=== PATIENT | male | born 1940 | race Caucasian/White ===

== ENCOUNTER 2017-05-18 09:27 | Inpatient (IN) | payer MEDICARE ==
[2017-05-18] VITALS (15 sets, daily range): BP systolic 99–153; BP diastolic 59–93; PULSE 66–112; RESP 14–24; TEMP 97.5–98.6; O2SAT 97–100
[~2017-05-18] VITALS: Ht 165.1 cm; Wt 86.5 kg
[~2017-05-18 09:27] MED LIST: COUM3TAB PO; CYCL-36 PO; FIORIC PO; FOSI20TA PO; FURO20 PO; METO25TA6 PO; OMEP20TA PO; PRED10 PO; SPIR25TA PO
--- NOTE | 2017-05-18 09:59 | PD ---
HPI Chief Complaint: Cardiac Complaint Time Seen by Provider: 09:44 Travel History International Travel<30 days: No Contact w/Intl Traveler<30days: No Traveled to known affect area: No History of Present Illness HPI This patient reports that he's been feeling dizzy and lightheaded for the last 2 days. He's had no syncope. This morning he was feeling palpitations and dizzy and his defibrillator fired one time. He has not had any chest pain. He was at the office of his nurse liaison Dr. Zambrano 3 days ago. Symptoms moderately severe. No alleviating factors. He denies any syncope today. Patient knows he has cardiac rhythm problems but cannot be more specific. PFSH Past Medical History Hx Anticoagulant Therapy: Yes (WARFARIN DAILY) Heart Rhythm Problems: Yes Cancer: No Cardiovascular Problems: Yes (PACER AND DEFIB CATH) High Cholesterol: No Chemotherapy: No Chest Pain: Yes Congestive Heart Failure: Yes Cerebrovascular Accident: No Coronary Artery Disease: Yes (PACER/DEFIB) Diabetes: No Diminished Hearing: No Endocrine: No Gastrointestinal Disorders: Yes GERD: Yes Glaucoma: No Genitourinary: No Hepatitis: No Hiatal Hernia: No Hypertension: Yes Implanted Vascular Access Dvce: Yes Musculoskeletal: Yes Neurologic: No Psychiatric: No Reproductive: No Respiratory: Yes (ASTHMA) Integumentary: No Radiation Therapy: No Seizures: No Thyroid Disease: No Ulcer: Yes Past Surgical History Abdominal Surgery: No AICD: Yes Cardiac Surgery: Yes (PACE/DEFIB) Eye Surgery: Yes (BILAT CATARACT) Genitourinary Surgery: No Thoracic Surgery: No Other Surgery: Yes (SINIS) Social History Alcohol Use: Yes (OCC) Tobacco Use: No Substance Use: No Allergies-Medications (Allergen,Severity, Reaction): Coded Allergies: Nitrofurantoin (Verified Allergy, Intermediate, Itching, 05/18/17) Uncoded Allergies: ANTIBIOTIC (Adverse Reaction, Intermediate, Rash, 05/18/17) PT STATE HE HAS A REACTION TO AN ANTIBIOTIC BUT CANNOT REMEMBER THE NAME Reported Meds & Prescriptions Reported Meds & Active Scripts Active Fioricet Tab (Acetaminophen/Butalbital/Caffeine) 1 Tab Tab 1-2 Tab PO Q6H PRN Reported Deltasone 10 Mg Tab (Prednisone) 10 Mg Tab 10 Mg PO DAILY Flexeril (Cyclobenzaprine HCl) 10 Mg Tab 10 Mg PO TID PRN Fioricet Tab (Acetaminophen/Butalbital/Caffeine) 1 Tab Tab 1 Tab PO Q6H PRN Lasix 20 Mg Tab (Furosemide) 20 Mg Tab 20 Mg PO DAILY Omeprazole 20 Mg Tab 20 Mg PO DAILY Coumadin (Warfarin Sodium) 3 Mg Tab 1.5 Mg PO SATURDAY Coumadin (Warfarin Sodium) 3 Mg Tab 3 Mg PO DAILY EXCEPT SATURDAY Toprol Xl 25 mg Tab (Metoprolol Succinate) 25 Mg Tabcr 50 Mg PO HS Fosinopril Sodium 20 Mg Tab 20 Mg PO BID Spironolactone 25 Mg Tab 25 Mg PO BID Review of Systems General / Constitutional: No: Fever Eyes: No: Visual changes HENT: Positive: Lightheadedness, No: Headaches Cardiovascular: Positive: Palpitations, Irregular Rhythm, No: Chest Pain or Discomfort Respiratory: No: Shortness of Breath Gastrointestinal: No: Abdominal Pain Genitourinary: No: Dysuria Musculoskeletal: No: Pain Skin: No Rash Neurologic: Positive: Dizziness, No: Weakness Psychiatric: No: Depression Endocrine: No: Polydipsia Hematologic/Lymphatic: No: Easy Bruising Physical Exam Narrative GENERAL: Well-nourished, well-developed patient with lightheadedness. SKIN: Focused skin assessment reveals no rash and nodules. Skin is Warm and dry. HEAD: Atraumatic. Normocephalic. EYES: Pupils equal and round. No scleral icterus. No injection or drainage. ENT: No nasal bleeding or discharge. Mucous membranes pink and moist. NECK: Trachea midline. No JVD. CARDIOVASCULAR: Regular rate and rhythm with frequent ectopic beats. No murmur appreciated. Heart rate is 90 RESPIRATORY: No accessory muscle use. Clear to auscultation. Breath sounds equal bilaterally. GASTROINTESTINAL: Abdomen soft, non-tender, nondistended. Hepatic and splenic margins not palpable. MUSCULOSKELETAL: No obvious deformities. No clubbing. No cyanosis. No edema. NEUROLOGICAL: Awake and alert. No obvious cranial nerve deficits. Motor grossly within normal limits. Normal speech. PSYCHIATRIC: Appropriate mood and affect; insight and judgment normal. Data Data Last Documented VS Vital Signs Date Time Temp Pulse Resp B/P Pulse Ox O2 Delivery O2 Flow Rate FiO2 05/18/17 11:19 78 14 113/59 99 Nasal Cannula 2 05/18/17 09:31 97.9 Orders Electrocardiogram (05/18/17 09:49) Basic Metabolic Panel (Bmp) (05/18/17 09:49) Complete Blood Count With Diff (05/18/17 09:49) Magnesium (Mg) (05/18/17 09:49) Prothrombin Time / Inr (Pt) (05/18/17 09:49) Chest, Single Ap (05/18/17 09:49) Ecg Monitoring (05/18/17 09:49) Iv Access Insert/Monitor (05/18/17 09:49) Oximetry (05/18/17 09:49) Oxygen Administration (05/18/17 09:49) Sodium Chloride 0.9% Flush (Ns Flush) (05/18/17 10:00) Digoxin (05/18/17 09:59) Metoprolol Tartrate (Lopressor) (05/18/17 10:15) Blood Pressure (05/18/17 10:33) Vital Signs (05/18/17 10:33) Amiodarone Inj (Cordarone Inj) (05/18/17 10:45) Amiodarone Inj (Cordarone Inj) (05/18/17 11:00) Sodium Chloride 0.9% Flush (Ns Flush) (05/18/17 10:45) Amiodarone Inj (Cordarone Inj) (05/18/17 10:45) Admit Order (Ed Use Only) (05/18/17 11:15) Electrocardiogram (05/18/17 ) Labs Laboratory Tests Test 05/18/17 09:55 White Blood Count 9.7 TH/MM3 Red Blood Count 4.42 MIL/MM3 Hemoglobin 15.5 GM/DL Hematocrit 43.6 % Mean Corpuscular Volume 98.7 FL Mean Corpuscular Hemoglobin 35.1 PG Mean Corpuscular Hemoglobin 35.6 % Concent Red Cell Distribution Width 12.8 % Platelet Count 273 TH/MM3 Mean Platelet Volume 8.7 FL Neutrophils (%) (Auto) 66.8 % Lymphocytes (%) (Auto) 21.1 % Monocytes (%) (Auto) 10.8 % Eosinophils (%) (Auto) 0.5 % Basophils (%) (Auto) 0.8 % Neutrophils # (Auto) 6.5 TH/MM3 Lymphocytes # (Auto) 2.0 TH/MM3 Monocytes # (Auto) 1.0 TH/MM3 Eosinophils # (Auto) 0.1 TH/MM3 Basophils # (Auto) 0.1 TH/MM3 CBC Comment DIFF FINAL Differential Comment Prothrombin Time 26.8 SEC Prothromb Time International 2.3 RATIO Ratio Sodium Level 137 MEQ/L Potassium Level 4.2 MEQ/L Chloride Level 103 MEQ/L Carbon Dioxide Level 25.9 MEQ/L Anion Gap 8 MEQ/L Blood Urea Nitrogen 15 MG/DL Creatinine 1.22 MG/DL Estimat Glomerular Filtration 58 ML/MIN Rate Random Glucose 89 MG/DL Calcium Level 8.7 MG/DL Magnesium Level 1.8 MG/DL Digoxin Level 0.6 NG/ML MDM Medical Decision Making Medical Screen Exam Complete: Yes Emergency Medical Condition: Yes Medical Record Reviewed: Yes Differential Diagnosis Ventricular tachycardia, A. fib, SVT Narrative Course I have reviewed the patient's electronic medical record. IV placed CBC is normal Metabolic profile is normal INR on Coumadin is 2.3 Digoxin level 0.6 Magnesium ordered I reviewed his EKG which shows sinus rhythm but very frequent PVCs. He will string together 2-3 groups of PVCs. Patient reports that his defibrillator fired. We've called [employer] to come in and interrogate the device I've placed a call to his nurse liaison to discuss any antiarrhythmic therapy At current time his pulse is 90 and his blood pressure is 156 systolic I spoke with nurse liaison coverage. They recommended starting metoprolol 50 twice a day now. His med list includes no beta-blockade. Patient had significant worsening at that point. He went into frequent spells of wide complex ventricular tachycardia anywhere from 10 to the 40 beats. They did spontaneously terminate However his defibrillator did not fire during any these events I spoke with nurse liaison a second time. I have initiated amiodarone drip per protocol He will be admitted to [facility] I spoke with hospitalist coverage as well Critical Care Narrative Aggregate critical care time was 35 minutes. Time to perform other separately billable procedures was not included in the critical care time. My time did not include minutes spent treating any other patients simultaneously or on activities that did not directly contribute to the patient's treatment. The services I provided to this patient were to treat and/or prevent clinically significant deterioration that could result in: Cardiopulmonary arrest, cardiogenic shock I provided critical care services requiring my management, as noted below: Chart data review, documentation time, medication orders and management, vital sign assessments/reviewing monitor data, ordering and reviewing lab tests, ordering and interpreting/reviewing x-rays and diagnostic studies, care of the patient and discussion of the patient with the admitting physicians. Diagnosis Primary Impression: Ventricular tachycardia Additional Impressions: Defibrillator discharge Lightheadedness Admitting Information Admitting Physician Requests: Admit Cecil Lira MD May 18, 2017 09:59
[2017-05-18] MEDS ORDERED: SODIUM CHLORIDE 0.9% FLUSH 10 ML FLUSH IVF PRN ×2 (10:00→10:45)
[2017-05-18 10:15] LABS: AUTOMATED NEUTROPHIL # 6.5 TH/MM3 (1.8-7.7); BASOPHIL # 0.1 TH/MM3 (0-0.2); BASOPHIL % 0.8 % (0.0-2.0); EOSINOPHIL # 0.1 TH/MM3 (0-0.4); EOSINOPHIL % 0.5 % (0.0-4.0); HEMATOCRIT 43.6 % (39.0-51.0); HEMO FLAGS DIFF FINAL; LYMPH % 21.1 % (9.0-44.0); MEAN CELL VOLUME 98.7 FL (80.0-100.0); MEAN CORPUSCULAR HEMOGLOBIN 35.1 PG (27.0-34.0); MEAN CORPUSCULAR HGB CONC 35.6 % (32.0-36.0); MONO % 10.8 % (0.0-8.0); NEUT % 66.8 % (16.0-70.0); PLATELET COUNT 273 TH/MM3 (150-450); RED BLOOD COUNT 4.42 MIL/MM3 (4.50-5.90); RED CELL DISTRIBUTION WIDTH 12.8 % (11.6-17.2); WHITE BLOOD COUNT 9.7 TH/MM3 (4.0-11.0)
[2017-05-18] MEDS ORDERED: METOPROLOL TARTRATE 50 MG TAB PO ONE (10:15)
[2017-05-18 10:19] LABS: INTERNATIONAL NORMALIZED RATIO 2.3 RATIO; PROTHROMBIN TIME - PATIENT 26.8 SEC (9.8-11.6)
--- NOTE | 2017-05-18 10:26 | RADRPT ---
EXAM DATE/TIME: 05/18/2017 09:48 [facility] COMPARISON: No previous studies available for comparison. INDICATIONS : Patient states defibrillator went off this morning. MEDICAL HISTORY : Cardiovascular disease SURGICAL HISTORY : Defibrillator ENCOUNTER: Initial ACUITY: 1 day PAIN SCORE: 0/10 LOCATION: Bilateral chest FINDINGS: A single AP erect portable view of the chest was obtained and demonstrates a left subclavian AV seque ntial transvenous pacer in place. The heart size is mildly prominent with no perihilar edema. There a re no confluent infiltrates or effusions. The bony thorax is intact. There are mild atherosclerotic c alcifications in the aorta. CONCLUSION: No acute disease. Xiang Moser MD on May 18, 2017 at 10:24 Board Certified Radiologist. This report was verified electronically.
[2017-05-18] MEDS ORDERED: AMIODARONE INJ 450 MG in D5W (EXCEL BAG) 241 ML IV SCH (10:45)
[2017-05-18] MEDS ORDERED: AMIODARONE INJ 150 MG in DEXTROSE 5% IN WATER 100ML INJ 97 ML IV ONE ×2 (10:45)
[2017-05-18 10:47] LABS: BICARBONATE 25.9 MEQ/L (21.0-32.0); MAGNESIUM 1.8 MG/DL (1.5-2.5); POTASSIUM 4.2 MEQ/L (3.5-5.1)
[2017-05-18] MEDS ORDERED: AMIODARONE INJ 900 MG in D5W 500 ML (EXCEL BAG) 482 ML IV SCH (11:00)
[2017-05-18] MEDS ORDERED: SODIUM CHLORIDE 0.9% FLUSH 10 ML FLUSH IV FLUSH PRN (11:30)
[2017-05-18] MEDS ORDERED: ONDANSETRON HCL 4 MG/2 ML VIAL IVP PRN (11:30)
[2017-05-18] MEDS ORDERED: BISACODYL 10 MG SUPP RECTAL PRN (11:30)
[2017-05-18] MEDS ORDERED: MAGNESIUM HYDROXIDE SUSP 30 ML CUP PO PRN (11:30)
[2017-05-18] MEDS ORDERED: SENNOSIDES 8.6 MG TAB PO PRN (11:30)
[2017-05-18] MEDS ORDERED: NALOXONE HCL 0.4 MG/ML AMP IV PRN (11:30)
[2017-05-18] MEDS ORDERED: LACTULOSE SYRUP 20 GM/30 ML CUP PO PRN (11:30)
[2017-05-18] MEDS ORDERED: DIGO0.12 PO (11:54)
[2017-05-18] MEDS ORDERED: SODIUM CHLOR 0.9% 1000 ML INJ 1,000 ML IV SCH (12:00)
[2017-05-18] MEDS ORDERED: FOSI10TA PO (12:01)
[2017-05-18] MEDS ORDERED: WARF-58 PO (12:01)
[2017-05-18] MEDS ORDERED: SPIR25TA PO (12:01)
[2017-05-18] MEDS ORDERED: ATOR10TA15 PO (12:01)
[2017-05-18] MEDS ORDERED: TORS20TA PO (12:01)
[2017-05-18] MEDS ORDERED: OMEP20TA PO (12:01)
[2017-05-18] MEDS ORDERED: MAGN400T2 PO (12:01)
--- NOTE | 2017-05-18 12:33 | HHI.HP ---
HPI Service [facility] Hospitalists Primary Care Physician Alli Da Silva MD Admission Diagnosis wide complex V tach, defib firing Diagnoses: Chief Complaint: Dizziness Lightheadedness Defibrillator firing Travel History International Travel<30 Days: No Contact w/Intl Traveler <30 Da: No Traveled to Known Affected Are: No History of Present Illness This is a 76 yo male with a past medical history significant for atrial fibrillation on Coumadin, nonischemic cardiomyopathy, hypertension, CHF, GERD, PUD and asthma who presents to [facility] ED with complaints of lightheadedness, dizziness and irregular heart beats for the past month that have increased in intensity and frequency over the past 2 days with associated defibrillator firing earlier today. He denies any syncopal episodes. Patient denies any associated chest pain or shortness of breath. He denies any increased swelling in his legs or feet. He cannot endorse any aggravating or alleviating factors. He denies any recent illness, fever or chills. He denies any associated nausea, vomiting or abdominal pain. He denies any hematuria, dysuria, diarrhea or constipation. He does admit to drinking alot of alcohol last night and eating chicken wings. Initially in the ED, his EKG showed sinus rhythm with frequent PVCs. Cardiology was contacted and per their recommendations was started on Metoprolol 50mg BID. [employer] was contacted to interrogate the patients defibrillator device. Patient worsened with frequent spells of wide complex ventricular tachycardia from 10 to 40 beats which spontaneously terminated. Per ED's note, his defibrillator did not fire during any of these events. ED discussed with fresh foods clerk again and amiodarone drip per protocol was initiated. Patient had some complaints of left shoulder pain that improved after the HOB was repositioned. Per patient report, he was seen at his fresh foods clerk office Dr. Zambrano 3 days ago and underwent an echocardiogram. Review of Systems Except as stated in HPI: all other systems reviewed are Neg Past Family Social History Past Medical History Atrial fibrillation on Coumadin Nonischemic cardiomyopathy HTN CHF with EF 25-30% GERD PUD Asthma Past Surgical History AICD Bilateral cataract sx Sinus sx Back surgery x 2 Vasectomy Tonsillectomy TURP Reported Medications Fioricet Tab (Acetaminophen/Butalbital/Caffeine) 1 Tab Tab 1-2 Tab PO Q6H PRN Deltasone 10 Mg Tab (Prednisone) 10 Mg Tab 10 Mg PO DAILY Flexeril (Cyclobenzaprine HCl) 10 Mg Tab 10 Mg PO TID PRN Fioricet Tab (Acetaminophen/Butalbital/Caffeine) 1 Tab Tab 1 Tab PO Q6H PRN Lasix 20 Mg Tab (Furosemide) 20 Mg Tab 20 Mg PO DAILY Omeprazole 20 Mg Tab 20 Mg PO DAILY Coumadin (Warfarin Sodium) 3 Mg Tab 1.5 Mg PO SATURDAY Coumadin (Warfarin Sodium) 3 Mg Tab 3 Mg PO DAILY EXCEPT SATURDAY Toprol Xl 25 mg Tab (Metoprolol Succinate) 25 Mg Tabcr 50 Mg PO HS Fosinopril Sodium 20 Mg Tab 20 Mg PO BID Spironolactone 25 Mg Tab 25 Mg PO BID Allergies: Coded Allergies: Nitrofurantoin (Verified Allergy, Intermediate, Itching, 05/18/17) Uncoded Allergies: ANTIBIOTIC (Adverse Reaction, Intermediate, Rash, 05/18/17) PT STATE HE HAS A REACTION TO AN ANTIBIOTIC BUT CANNOT REMEMBER THE NAME Active Ordered Medications Current Medications Medications (Trade) Dose Ordered Sig/Paty Route Start Time Stop Time Status Last Admin Amiodarone HCl 450 mg/Dextrose 250 ml @ 0 mls/hr CONTINUOUS IV 05/18/17 10:45 05/18/17 11:34 (NS 1000 ml Inj) 1,000 ml @ 83 mls/hr Q12H3M IV 05/18/17 12:00 (NS Flush) 2 ml UNSCH PRN IV FLUSH 05/18/17 11:30 (NS Flush) 2 ml BID IV FLUSH 05/18/17 21:00 (Tylenol) 650 mg Q4H PRN PO 05/18/17 11:30 (Zofran Inj) 4 mg Q6H PRN IVP 05/18/17 11:30 (Narcan Inj) 0.4 mg UNSCH PRN IV 05/18/17 11:30 (Gladis-Colace) 1 tab BID PO 05/18/17 21:00 (Milk Of Magnesia Liq) 30 ml Q12H PRN PO 05/18/17 11:30 (Senokot) 17.2 mg Q12H PRN PO 05/18/17 11:30 (Dulcolax Supp) 10 mg DAILY PRN RECTAL 05/18/17 11:30 (Lactulose Liq) 30 ml DAILY PRN PO 05/18/17 11:30 Family History Significant FMHX of coronary artery disease. Mother, DC, Brother, DC and CVA, Son, DC at age 43, previous CABG Social History Patient has a remote history of tobacco use of 1ppd starting when he was a teenager but quit 40 years ago. Patient reports alcohol consumption of 3 to 4 bloody lorraine's or glasses of wine nightly. Patient denies any illicit drug use. Physical Exam Vital Signs Vital Signs Date Time Temp Pulse Resp B/P Pulse Ox O2 Delivery O2 Flow Rate FiO2 05/18/17 11:34 77 123/70 05/18/17 11:19 78 14 113/59 99 Nasal Cannula 2 05/18/17 11:01 87 99/70 05/18/17 10:47 102 18 153/85 100 05/18/17 10:17 90 99 Nasal Cannula 2 05/18/17 09:31 97.9 112 24 144/87 97 Room Air Physical Exam GENERAL: This is a well-nourished, well-developed patient, in no apparent distress. Awake and alert. Appears comfortable. SKIN: No rashes, ecchymoses or lesions. Warm and dry. HEAD: Atraumatic. Normocephalic. No temporal or scalp tenderness. EYES: Pupils equal round and reactive. Extraocular motions intact. No scleral icterus. No injection or drainage. ENT: Nose without bleeding or purulent drainage. Throat without erythema, tonsillar hypertrophy or exudate. Uvula midline. Airway patent. NECK: Trachea midline. No lymphadenopathy. Supple, nontender, no meningeal signs. CARDIOVASCULAR:Irregular without murmurs, gallops, or rubs. RESPIRATORY: Clear to auscultation. Breath sounds equal bilaterally. No wheezes , rales, or rhonchi. GASTROINTESTINAL: Abdomen soft, non-tender, nondistended. No hepato-splenomegaly , or palpable masses. No guarding. MUSCULOSKELETAL: Extremities without clubbing or cyanosis. Trace bilateral lower extremity edema. No joint tenderness, effusion, or edema noted. No calf tenderness. NEUROLOGICAL: Awake and alert. Able to move all extremities. No focal neurologic findings appreciated. Normal speech. Laboratory Laboratory Tests Test 05/18/17 09:55 White Blood Count 9.7 Red Blood Count 4.42 Hemoglobin 15.5 Hematocrit 43.6 Mean Corpuscular Volume 98.7 Mean Corpuscular Hemoglobin 35.1 Mean Corpuscular Hemoglobin 35.6 Concent Red Cell Distribution Width 12.8 Platelet Count 273 Mean Platelet Volume 8.7 Neutrophils (%) (Auto) 66.8 Lymphocytes (%) (Auto) 21.1 Monocytes (%) (Auto) 10.8 Eosinophils (%) (Auto) 0.5 Basophils (%) (Auto) 0.8 Neutrophils # (Auto) 6.5 Lymphocytes # (Auto) 2.0 Monocytes # (Auto) 1.0 Eosinophils # (Auto) 0.1 Basophils # (Auto) 0.1 CBC Comment DIFF FINAL Differential Comment Prothrombin Time 26.8 Prothromb Time International 2.3 Ratio Sodium Level 137 Potassium Level 4.2 Chloride Level 103 Carbon Dioxide Level 25.9 Anion Gap 8 Blood Urea Nitrogen 15 Creatinine 1.22 Estimat Glomerular Filtration 58 Rate Random Glucose 89 Calcium Level 8.7 Magnesium Level 1.8 Digoxin Level 0.6 Result Diagram: 05/18/1755 05/18/1755 Imaging Last Impressions Chest X-Ray 05/18/17 0949 Signed Impressions: Service Date/Time: Thursday, May 18, 2017 09:48 - CONCLUSION: No acute disease. Xiang Moser MD Assessment and Plan Assessment and Plan 76 yo male with a past medical history significant for atrial fibrillation on Coumadin, hypertension, CHF, GERD, PUD and asthma who presents to [facility] ED with complaints of lightheadedness, dizziness and irregular heart beats for the past month that have increased in intensity and frequency over the past 2 days with associated defibrillator firing earlier today. Ventricular tachycardia Defibrillator discharge Consult cardiology Continue amiodarone drip K 4.2, Mag 1.8 Digoxin level 0.6 Cycle cardiac enzymes Continuous cardiac monitoring [employer] contacted to interrogate device Atrial fibrillation on Coumadin CHF, not in acute exacerbation Nonischemic cardiomyopathy HTN Continue on home dose of Coumadin. INR 2.3. Continue to monitor INR. Pharmacy to dose. Monitor for signs of fluid overload. CXR personally reviewed shows no e/o edema or effusions. Trace lower extremity edema. Satting 99% on 2L. Hold home antihypertensive meds for now as patient is normotensive Continue on home dose of Digoxin Hold home Torsemide and Aldactone monitor I&Os last echocardiogram in the system dated 10/19/13 revealed severely reduced EF 25- 30%, diffuse hypokinesis. Patient states he recently had echocardiogram done on Saturday at his fresh foods clerk office. Asthma, not in acute exacerbation Duonebs as needed HLD Continue home Lipitor 10mg daily DVT prophylaxis Patient is on Coumadin Discussed with patient, family and Dr. Andujar Code Status Full Code Discussed Condition With Discussed with patient in ER and with his Daughter Miss Matson Discussed with clin application specialist, asked me to continue Warfarin and Amiodarone by mouth 400 mg BID. Attending Statement The exam, history, and the medical decision-making described in the above note were completed with the assistance of the mid-level provider. I reviewed and agree with the findings presented. I attest that I had a [id number] encounter with the patient on the same day, and personally performed and documented my assessment and findings in the medical record. Lorraine Downey May 18, 2017 12:33 Je Chacon MD May 18, 2017 13:49
--- NOTE | 2017-05-18 13:44 | MB ---
cc: JOSE ZAMBRANO M.D., BARTON G. DO DATE OF CONSULTATION: 05/18/2017 REASON FOR CONSULTATION: Cardiology consultation. IMPRESSION 1. Complex ventricular arrhythmias. The patient received a defibrillator shock this morning. 2. Chronic atrial fibrillation, now sinus rhythm after his ICD shock this morning. 3. Hypertension. 4. History of congestive heart failure. The patient tells me he does not have atherosclerotic heart disease. 5. History of peptic ulcer disease. 6. Chronic obstructive pulmonary disease with a history of asthma. 7. Chronic warfarin therapy. RECOMMENDATIONS The patient has been admitted to the hospital. We have started a amiodarone drip. This will be changed to p.o. amiodarone magnesium level was noted to be 1.8. He will be started on magnesium supplementation. Will continue warfarin. INR 2.5-3.5. CLINICAL DATA Mr. Kent is a 76-year-old male who was admitted to the emergency room with complaints of a defibrillator shock. He apparently was sitting on the couch this morning when he shock according to his daughter that knocked him off the couch. I was contacted, the patient still felt dizzy after his one shock, I advised him to go to the emergency room. We just finished interrogating his device and he has had multiple runs of nonsustained ventricular tachycardia. Many episodes have been pace terminated. The patient does not know his ejection fraction he does not know the etiology of this cardiomyopathy. He denies a history of myocardial infarction. He has had no stents or bypass surgery and I assume he has a nonischemic dilated cardiomyopathy. He says Dr. Zambrano his primary carbon furnace operator has told him that he does have congestive heart failure. He apparently saw Dr. Zambrano recently and had a recent echocardiogram. ALLERGIES NITROFURANTOIN UNSPECIFIED ANTIBIOTIC. MEDICATIONS: 1. At the time of admission included Fioricet 2. prednisone 10 mg daily, 3. Flexeril 4. Furosemide 20 daily 5. Omeprazole 20 daily, 6. Warfarin 9 mg every day except 4-1/2 mg on Saturday, 7. metoprolol 25 in the morning and 50 in the evening. 8. Fosinopril 20 b.i.d. 9. Spironolactone 25 b.i.d. HISTORY: He denies a history of seizure, stroke or TIA. He has a history of smoking in the remote past, quit over 40 years ago. He apparently drinks three to five alcoholic drinks per day. He and has no history of asthma. He has a history of peptic ulcer disease but he has had no recent bleeding complications from warfarin. He had elevated liver function tests atorvastatin which was discontinued. He has no history of kidney problems or thyroid problems. He has had no recent chest pain. He had no syncope. He did feel dizzy after the shock this morning but not before the shock. He has had no lower extremity edema. He has had no abdominal or back pain. PHYSICAL EXAMINATION IN GENERAL: At this time demonstrates an alert oriented male laying in bed no apparent distress. He is in a sinus rhythm / bigeminal rhythm. VITAL SIGNS: Blood pressure 153/85, heart rate is about 90 at this point. Saturations 99%. HEAD, EYES, EARS, NOSE, AND THROAT: Exam anicteric sclerae. Jugular venous pressures are not elevated. No definite bruits. Noted. LUNGS: He has clear lung allison. CARDIAC: On cardiac exam there is a regular rate and rhythm. There is a fourth heart sound present. He has bigeminal rhythm during part of the time. ABDOMEN: the abdomen is soft, nontender. EXTREMITIES: The extremities are free of cyanosis, clubbing, edema. RADIOLOGIC: A 12-lead electrocardiogram demonstrates sinus rhythm. There are ventricular couplets and triplets some multiform there are nonspecific ST-T changes. There is a left atrial abnormality. There is a intermittent ventricular pacing. LABORATORY FINDINGS White cell count 9,700, hematocrit 44%, platelet count 273, lytes 137, 4.2, 103, 25.9, BUN 15, creatinine 1.2, magnesium 1.8. A single view chest x-ray is unremarkable. Cardiac enzymes are pending. DISCUSSION The 76-year-old male presumably with a nonischemic dilated cardiomyopathy and complex of ventricular arrhythmias. He did have chronic atrial fibrillation on warfarin and is now in a sinus rhythm after receiving an appropriate shock this morning. We have reprogrammed his ICD to a DDD mode with a lower rate limit of 70 pulses per minute a monitoring zone was also put on 130 beats per minute. The patient needs to keep his potassium above 4.5, he needs to keep magnesium level above 2. The patient has been started on IV amiodarone with significant decrease in his ectopy will begin p.o. amiodarone. DO Darrell Jacome /12:41 PM /1:13 PM
[2017-05-18] MEDS: SODIUM CHLORIDE 0.9% FLUSH 10 ML FLUSH IV FLUSH SCH (13:47)
[2017-05-18] MEDS ORDERED: WARFARIN SOD 3 MG TAB PO SCH (16:00)
[2017-05-18] MEDS: ACETAMINOPHEN 325 MG TAB PO PRN (16:29)
[2017-05-18] MEDS ORDERED: AMIODARONE INJ 450 MG in D5W (EXCEL BAG) 241 ML IV ONE (17:09)
[2017-05-18] MEDS: AMIODARONE 200 MG TAB PO SCH (22:26)
[2017-05-18] MEDS: ATORVASTATIN 10 MG TAB PO SCH (22:27)
[2017-05-18] MEDS: ZOLPIDEM TARTRATE 5 MG TAB PO PRN (22:27)
[2017-05-18] MEDS: DOCUSATE SODIUM 50 MG/SENNA 8.6 MG TAB PO SCH (22:27)
[2017-05-19] VITALS (23 sets, daily range): BP systolic 101–159; BP diastolic 64–95; PULSE 68–79; RESP 16–20; TEMP 97.3–98.8; O2SAT 96–98
[2017-05-19 07:27] LABS: AUTOMATED NEUTROPHIL # 5.4 TH/MM3 (1.8-7.7); BASOPHIL # 0.1 TH/MM3 (0-0.2); BASOPHIL % 0.9 % (0.0-2.0); EOSINOPHIL # 0.1 TH/MM3 (0-0.4); EOSINOPHIL % 1.1 % (0.0-4.0); HEMATOCRIT 39.9 % (39.0-51.0); HEMO FLAGS DIFF FINAL; LYMPH % 19.3 % (9.0-44.0); LYMPHOCYTE # 1.6 TH/MM3 (1.0-4.8); MEAN CELL VOLUME 100.6 FL (80.0-100.0); MEAN CORPUSCULAR HEMOGLOBIN 34.3 PG (27.0-34.0); MEAN CORPUSCULAR HGB CONC 34.2 % (32.0-36.0); MONO % 11.3 % (0.0-8.0); NEUT % 67.4 % (16.0-70.0); PLATELET COUNT 255 TH/MM3 (150-450); RED BLOOD COUNT 3.97 MIL/MM3 (4.50-5.90); RED CELL DISTRIBUTION WIDTH 12.8 % (11.6-17.2)
[2017-05-19 08:02] LABS: INTERNATIONAL NORMALIZED RATIO 1.8 RATIO
[2017-05-19 08:04] LABS: BICARBONATE 21.6 MEQ/L (21.0-32.0); POTASSIUM 3.9 MEQ/L (3.5-5.1)
[2017-05-19] MEDS: DOCUSATE SODIUM 50 MG/SENNA 8.6 MG TAB PO SCH ×2 (08:38→21:00)
[2017-05-19] MEDS: AMIODARONE 200 MG TAB PO SCH ×2 (08:38→21:06)
[2017-05-19] MEDS: SODIUM CHLORIDE 0.9% FLUSH 10 ML FLUSH IV FLUSH SCH ×2 (08:39→21:07)
[2017-05-19] MEDS ORDERED: DIGOXIN 0.125 MG TAB PO SCH (09:00)
[2017-05-19] MEDS ORDERED: MAGNESIUM OXIDE 400 MG TAB PO SCH (09:00)
--- NOTE | 2017-05-19 09:19 | HHI.PR ---
Subjective Remarks This is a pleasant 76 y/o male who came to ER after Defibrillator firing in am yesterday. Seen by technical support specialist Doctor Filiberto Trevino, with Diagnosis of Complex Ventricular arrhythmias, received a defibrillator shock Chronic Atrial Fibrillation, now sinus rhythm, after ICD shock, Hypertension, PUD, COPD, chronic Warfarin therapy. Admitted and started on Amiodarone drip, he will change to by mouth amiodarone, the Defibrillator was reprogrammed his ICD to a DDD mode with lower rate limit of 70 pulses per minute a monitoring zone was also put on 130 beats per minute, keep potassium above 4.5 Magnesium level above 2. Seen in his bedroom, discussed with patient and his Nurse Miss Sorto his INR 1.8 subtherapeutic in a patient with CHADS-VASc Score of 4 will need to receive LMWH 1mg per kilogram every 12 hours SQ starting today. stable in his bedroom, no nausea, vomit or diarrhea, and sinus rhythm on monitor at this time. Objective Vital Signs Date Time Temp Pulse Resp B/P Pulse Ox O2 Delivery O2 Flow Rate FiO2 05/19/17 09:00 69 05/19/17 08:00 79 05/19/17 07:00 78 05/19/17 07:00 97.4 70 20 107/77 98 05/19/17 02:50 75 05/19/17 02:00 70 05/19/17 01:16 98.2 69 20 101/64 96 05/19/17 01:00 68 05/19/17 00:00 72 05/18/17 23:00 75 05/18/17 22:00 78 05/18/17 21:00 70 05/18/17 20:08 21 05/18/17 20:00 98.6 66 20 115/72 97 05/18/17 20:00 72 05/18/17 19:00 77 05/18/17 18:00 69 05/18/17 17:05 73 05/18/17 17:05 97.5 69 20 138/93 100 05/18/17 13:00 82 17 119/73 99 Nasal Cannula 2 05/18/17 12:28 83 17 116/78 100 Nasal Cannula 05/18/17 11:34 77 123/70 05/18/17 11:30 76 17 123/70 99 Nasal Cannula 2 05/18/17 11:19 78 14 113/59 99 Nasal Cannula 2 05/18/17 11:01 87 99/70 05/18/17 10:47 102 18 153/85 100 05/18/17 10:17 90 99 Nasal Cannula 2 05/18/17 09:31 97.9 112 24 144/87 97 Room Air I/O 05/18/17 05/18/17 05/18/17 05/19/17 05/19/17 05/19/17 07:00 15:00 23:00 07:00 15:00 23:00 Intake Total 783 ml Balance 783 ml Intake Oral 240 ml IV Total 543 ml # Voids 1 Result Diagram: 05/19/17 0639 05/19/17 0639 Imaging Last Impressions Chest X-Ray 05/18/1749 Signed Impressions: Service Date/Time: Thursday, May 18, 2017 09:48 - CONCLUSION: No acute disease. Xiang Moser MD Procedures None Other Results Laboratory Tests Test 05/18/17 05/18/17 05/19/17 09:55 18:50 06:39 Magnesium Level 1.8 MG/DL Digoxin Level 0.6 NG/ML Total Creatine Kinase 87 U/L Troponin I 0.05 NG/ML Thyroid Stimulating Hormone 1.340 uIU/ML 3rd Gen White Blood Count 8.0 TH/MM3 Red Blood Count 3.97 MIL/MM3 Hemoglobin 13.6 GM/DL Hematocrit 39.9 % Mean Corpuscular Volume 100.6 FL Mean Corpuscular Hemoglobin 34.3 PG Mean Corpuscular Hemoglobin 34.2 % Concent Red Cell Distribution Width 12.8 % Platelet Count 255 TH/MM3 Mean Platelet Volume 8.4 FL Neutrophils (%) (Auto) 67.4 % Lymphocytes (%) (Auto) 19.3 % Monocytes (%) (Auto) 11.3 % Eosinophils (%) (Auto) 1.1 % Basophils (%) (Auto) 0.9 % Neutrophils # (Auto) 5.4 TH/MM3 Lymphocytes # (Auto) 1.6 TH/MM3 Monocytes # (Auto) 0.9 TH/MM3 Eosinophils # (Auto) 0.1 TH/MM3 Basophils # (Auto) 0.1 TH/MM3 CBC Comment DIFF FINAL Differential Comment Prothrombin Time 21.0 SEC Prothromb Time International 1.8 RATIO Ratio Sodium Level 139 MEQ/L Potassium Level 3.9 MEQ/L Chloride Level 108 MEQ/L Carbon Dioxide Level 21.6 MEQ/L Anion Gap 9 MEQ/L Blood Urea Nitrogen 17 MG/DL Creatinine 1.17 MG/DL Estimat Glomerular Filtration 60 ML/MIN Rate Random Glucose 83 MG/DL Calcium Level 8.4 MG/DL Objective Remarks GENERAL: Well developed in no acute distress. SKIN: No rashes, ecchymoses or lesions. Warm and dry. HEAD: Atraumatic. Normocephalic. No temporal or scalp tenderness. EYES: Pupils equal round and reactive. Extraocular motions intact. No scleral icterus. No injection or drainage. ENT: Nose without bleeding or purulent drainage. Throat without erythema, tonsillar hypertrophy or exudate. Uvula midline. Airway patent. NECK: Trachea midline. No lymphadenopathy. Supple, nontender, no meningeal signs. CARDIOVASCULAR: Regular rate and rhythm. no murmurs. RESPIRATORY: Clear to auscultation. Breath sounds equal bilaterally. No wheezes , rales, or rhonchi. GASTROINTESTINAL: Abdomen soft, non-tender, nondistended. No hepato-splenomegaly , or palpable masses. No guarding. MUSCULOSKELETAL: Extremities without clubbing or cyanosis. Trace bilateral lower extremity edema. No joint tenderness, effusion, or edema noted. No calf tenderness. NEUROLOGICAL: Awake and alert. Able to move all extremities. No focal neurologic findings appreciated. Normal speech. Medications and IVs Current Medications Medications (Trade) Dose Ordered Sig/Paty Route Start Time Stop Time Status Last Admin (NS 1000 ml Inj) 1,000 ml @ 83 mls/hr Q12H3M IV 05/18/17 12:00 05/18/17 12:28 (NS Flush) 2 ml UNSCH PRN IV FLUSH 05/18/17 11:30 (NS Flush) 2 ml BID IV FLUSH 05/18/17 21:00 05/19/17 08:39 (Tylenol) 650 mg Q4H PRN PO 05/18/17 11:30 05/18/17 16:29 (Zofran Inj) 4 mg Q6H PRN IVP 05/18/17 11:30 (Narcan Inj) 0.4 mg UNSCH PRN IV 05/18/17 11:30 (Gladis-Colace) 1 tab BID PO 05/18/17 21:00 05/19/17 08:38 (Milk Of Magnesia Liq) 30 ml Q12H PRN PO 05/18/17 11:30 (Senokot) 17.2 mg Q12H PRN PO 05/18/17 11:30 (Dulcolax Supp) 10 mg DAILY PRN RECTAL 05/18/17 11:30 (Lactulose Liq) 30 ml DAILY PRN PO 05/18/17 11:30 (Lipitor) 10 mg HS PO 05/18/17 21:00 05/18/17 22:27 (Lanoxin) 0.125 mg DAILY PO 05/19/17 09:00 05/19/17 08:39 Magnesium Oxide 400 mg 400 mg DAILY PO 05/19/17 09:00 05/19/17 08:39 (Coumadin Consult Pharmacy) 0 ml @ 0 mls/hr UNSCH OTHER 05/18/17 13:00 (Coumadin) 3 mg DAILY@1600 PO 05/18/17 16:00 05/18/17 16:28 (Ambien) 5 mg HS PRN PO 05/18/17 16:45 05/18/17 22:27 (Cordarone) 400 mg BID PO 05/18/17 21:00 05/19/17 08:38 (Coumadin) 4 mg ONCE ONCE PO 05/19/17 16:00 05/19/17 16:01 (Coumadin Booklet) 1 ONCE ONCE OTHER 05/19/17 16:00 05/19/17 16:01 A/P Assessment and Plan 76 yo male with a past medical history significant for atrial fibrillation on Coumadin, hypertension, CHF, GERD, PUD and asthma who presents to [facility] ED with complaints of lightheadedness, dizziness and irregular heart beats for the past month that have increased in intensity and frequency over the past 2 days with associated defibrillator firing earlier today. Ventricular tachycardia Defibrillator discharge Seen by technical support specialist Doctor Filiberto Trevino, with Diagnosis of Complex Ventricular arrhythmias, received a defibrillator shock Chronic Atrial Fibrillation, now sinus rhythm, after ICD shock, Hypertension, PUD, COPD, chronic Warfarin therapy. Admitted and started on Amiodarone drip, he will change to by mouth amiodarone, the Defibrillator was reprogrammed his ICD to a DDD mode with lower rate limit of 70 pulses per minute a monitoring zone was also put on 130 beats per minute, keep potassium above 4.5 Magnesium level above 2. Seen in his bedroom, discussed with patient and his Nurse Miss Sorto his INR 1.8 subtherapeutic in a patient with CHADS-VASc Score of 4 will need to receive LMWH 1mg per kilogram every 12 hours SQ starting today. stable in his bedroom, no nausea, vomit or diarrhea, and sinus rhythm on monitor at this time. Atrial fibrillation on Coumadin CHF, not in acute exacerbation Nonischemic cardiomyopathy HTN Continue on home dose of Coumadin. INR 1.8 discussed with Pharmacy due to CHADS -VASc score of 4 started on Lovenox bridging Discontinued IV fluids to avoid volume overload. . Continue on home dose of Digoxin Hold home Torsemide and Aldactone monitor I&Os last echocardiogram in the system dated 10/19/13 revealed severely reduced EF 25- 30%, diffuse hypokinesis. Patient states he recently had echocardiogram done on Saturday at his [employer] office. Asthma, not in acute exacerbation Duonebs as needed HLD Continue home Lipitor 10mg daily DVT prophylaxis Patient is on Coumadin Lovenox Discussed with patient, family and Dr. Andujar Code Status Full Code Discharge Planning Once cleared by technical support specialist, will need bridging with Lovenox for INR subtherapeutic today. Je Chacon MD May 19, 2017 09:19
[2017-05-19] MEDS ORDERED: POTASSIUM CHLORIDE 20 MEQ CONTROLLED RELEASE TAB PO ONE (09:30)
[2017-05-19] MEDS: ENOXAPARIN SODIUM 100 MG/ML SYRINGE SQ SCH ×2 (09:48→21:07)
[2017-05-19] MEDS ORDERED: WARFARIN SOD 3 MG TAB PO SCH (14:00)
[2017-05-19] MEDS: ACETAMINOPHEN 325 MG TAB PO PRN (14:35)
--- NOTE | 2017-05-19 15:56 | PD.CARD.PN ---
Objective Vital Signs / I&O Vital Signs Date Time Temp Pulse Resp B/P Pulse Ox O2 Delivery O2 Flow Rate FiO2 05/19/17 15:00 69 05/19/17 15:00 98.8 69 20 159/95 98 05/19/17 14:00 69 05/19/17 13:00 69 05/19/17 12:00 69 05/19/17 11:00 98.2 70 20 124/72 98 05/19/17 11:00 69 05/19/17 10:00 69 05/19/17 09:00 69 05/19/17 08:00 79 05/19/17 07:00 78 05/19/17 07:00 97.4 70 20 107/77 98 05/19/17 02:50 75 05/19/17 02:00 70 05/19/17 01:16 98.2 69 20 101/64 96 05/19/17 01:00 68 05/19/17 00:00 72 05/18/17 23:00 75 05/18/17 22:00 78 05/18/17 21:00 70 05/18/17 20:08 21 05/18/17 20:00 98.6 66 20 115/72 97 05/18/17 20:00 72 05/18/17 19:00 77 05/18/17 18:00 69 05/18/17 17:05 73 05/18/17 17:05 97.5 69 20 138/93 100 I/O 05/18/17 05/18/17 05/18/17 05/19/17 05/19/17 05/19/17 06:59 14:59 22:59 06:59 14:59 22:59 Intake Total 783 ml Balance 783 ml Intake Oral 240 ml IV Total 543 ml # Voids 1 Laboratory Laboratory Tests Test 05/18/17 05/19/17 18:50 06:39 Total Creatine Kinase 87 U/L Troponin I 0.05 NG/ML Thyroid Stimulating Hormone 1.340 uIU/ML 3rd Gen White Blood Count 8.0 TH/MM3 Red Blood Count 3.97 MIL/MM3 Hemoglobin 13.6 GM/DL Hematocrit 39.9 % Mean Corpuscular Volume 100.6 FL Mean Corpuscular Hemoglobin 34.3 PG Mean Corpuscular Hemoglobin 34.2 % Concent Red Cell Distribution Width 12.8 % Platelet Count 255 TH/MM3 Mean Platelet Volume 8.4 FL Neutrophils (%) (Auto) 67.4 % Lymphocytes (%) (Auto) 19.3 % Monocytes (%) (Auto) 11.3 % Eosinophils (%) (Auto) 1.1 % Basophils (%) (Auto) 0.9 % Neutrophils # (Auto) 5.4 TH/MM3 Lymphocytes # (Auto) 1.6 TH/MM3 Monocytes # (Auto) 0.9 TH/MM3 Eosinophils # (Auto) 0.1 TH/MM3 Basophils # (Auto) 0.1 TH/MM3 CBC Comment DIFF FINAL Differential Comment Prothrombin Time 21.0 SEC Prothromb Time International 1.8 RATIO Ratio Sodium Level 139 MEQ/L Potassium Level 3.9 MEQ/L Chloride Level 108 MEQ/L Carbon Dioxide Level 21.6 MEQ/L Anion Gap 9 MEQ/L Blood Urea Nitrogen 17 MG/DL Creatinine 1.17 MG/DL Estimat Glomerular Filtration 60 ML/MIN Rate Random Glucose 83 MG/DL Calcium Level 8.4 MG/DL Assessment and Plan Assessment and Plan PT STABLE NO MORE SHOCKS NO FRIDA CURRENTLY OFF IV AMIO BP UP PE SAME WARFARIN DOSE INCREASED FOR INR 1.8 WILL DC DIGOXIN START LO DOSE B BRANT WOULD CONT AMIO 800/DAY FOR A WEEK THE V TO 400 A DAY FOR 2 MORE WEEKS Uriel De Los Santos DO May 19, 2017 15:56
[2017-05-19] MEDS ORDERED: WARFARIN SOD 4 MG TAB PO SCH (16:00)
[2017-05-19] MEDS ORDERED: WARFARIN SOD 4 MG TAB PO ONE (16:00)
[2017-05-19] MEDS: ZOLPIDEM TARTRATE 5 MG TAB PO PRN (21:06)
[2017-05-19] MEDS: ATORVASTATIN 10 MG TAB PO SCH (21:06)
[2017-05-19] MEDS: MAGNESIUM OXIDE 400 MG TAB PO SCH (21:07)
[2017-05-20] VITALS (11 sets, daily range): BP systolic 115–130; BP diastolic 72–80; PULSE 68–89; RESP 17–18; TEMP 97.4–97.7; O2SAT 98–99
[2017-05-20 06:58] LABS: INTERNATIONAL NORMALIZED RATIO 1.9 RATIO; PROTHROMBIN TIME - PATIENT 21.7 SEC (9.8-11.6)
[2017-05-20 07:13] LABS: BICARBONATE 26.5 MEQ/L (21.0-32.0); POTASSIUM 4.2 MEQ/L (3.5-5.1)
[2017-05-20] MEDS ORDERED: ATENOLOL 25 MG TAB PO SCH (09:00)
[2017-05-20] MEDS: DOCUSATE SODIUM 50 MG/SENNA 8.6 MG TAB PO SCH (09:00)
[2017-05-20] MEDS: MAGNESIUM OXIDE 400 MG TAB PO SCH (09:33)
[2017-05-20] MEDS: AMIODARONE 200 MG TAB PO SCH (09:33)
[2017-05-20] MEDS: ENOXAPARIN SODIUM 100 MG/ML SYRINGE SQ SCH (09:34)
[2017-05-20] MEDS: SODIUM CHLORIDE 0.9% FLUSH 10 ML FLUSH IV FLUSH SCH (09:35)
--- NOTE | 2017-05-20 09:59 | EKG ---
Date Performed: 05/18/2017 Time Performed: 11:26:36 PTAGE: 76 years EKG: UNCERTAIN IRREGULAR RHYTHM ELECTRONIC VENTRICULAR PACEMAKER -- CONTOUR ANALYSIS BASED ON IN TRINSIC RHYTHM INFERIOR MYOCARDIAL INFARCTION MODERATE T-WAVE ABNORMALITY, CONSIDER ANTEROLATERAL ISC HEMIA Paced rhythm is new since prior tracing ABNORMAL ECG PREVIOUS TRACING : 05/18/2017 09.53 DOCTOR: Marquis Noriega Interpretating Date/Time 05/20/2017 09:58:39
--- NOTE | 2017-05-20 09:59 | EKG ---
Date Performed: 05/18/2017 Time Performed: 09:53:32 PTAGE: 76 years EKG: Sinus rhythm WITH FREQUENT VENTRICULAR PREMATURE COMPLEXES NONSPECIFIC ST & T-WAVE ABNORMALITY, unchanged from pr ior tracing Two, three and four beat runs of ventricular rhythm are now noted Clinical correlation is strongly recommended ABNORMAL RHYTHM ECG PREVIOUS TRACING : 10/17/2013 10.19 DOCTOR: Marquis Noriega Interpretating Date/Time 05/20/2017 09:57:50
--- NOTE | 2017-05-20 10:49 | HHI.PR ---
Subjective Remarks This is a pleasant 76 y/o male who came to ER after Defibrillator firing in am yesterday. Seen by therapeutic recreation specialist Doctor Filiberto Trevino, with Diagnosis of Complex Ventricular arrhythmias, received a defibrillator shock Chronic Atrial Fibrillation, now sinus rhythm, after ICD shock, Hypertension, PUD, COPD, chronic Warfarin therapy. Admitted and started on Amiodarone drip, he will change to by mouth amiodarone, the Defibrillator was reprogrammed his ICD to a DDD mode with lower rate limit of 70 pulses per minute a monitoring zone was also put on 130 beats per minute, keep potassium above 4.5 Magnesium level above 2. Seen in his bedroom, discussed with patient and his Nurse Noreen his INR 1.8 subtherapeutic in a patient with CHADS-VASc Score of 4 will need to receive LMWH 1mg per kilogram every 12 hours SQ starting today. stable in his bedroom, no nausea, vomit or diarrhea, and sinus rhythm on monitor at this time. 05/20: Stable in his bedroom, discussed with patient and nurse Miss Correa, as per therapeutic recreation specialist to continue Warfarin today with INR 1.9 and Sinus rhythm, okay to increase the dose of Warfarin and follow up tomorrow for PT and INR Discontinued Digoxin and given low dose Beta blockers with Amiodarone 800 mg for one more week then 400 mg day for two more weeks. and follow during the week with therapeutic recreation specialist. no nausea, vomit or diarrhea. no chest pain, and continue sinus rhythm. Objective Vital Signs Date Time Temp Pulse Resp B/P Pulse Ox O2 Delivery O2 Flow Rate FiO2 05/20/17 08:00 82 05/20/17 07:15 69 130/80 05/20/17 07:00 69 05/20/17 07:00 97.4 69 18 130/80 98 05/20/17 06:20 89 05/20/17 05:28 68 05/20/17 04:20 68 05/20/17 03:30 97.7 70 17 115/72 99 05/20/17 03:20 69 05/20/17 02:10 74 05/20/17 01:11 69 05/20/17 00:44 69 05/19/17 23:40 97.8 68 16 128/85 97 05/19/17 23:37 70 05/19/17 22:00 68 05/19/17 21:00 68 05/19/17 20:10 69 05/19/17 19:59 69 05/19/17 19:59 97.3 73 16 128/73 97 05/19/17 18:00 69 05/19/17 17:00 69 05/19/17 16:00 69 05/19/17 15:00 69 05/19/17 15:00 98.8 69 20 159/95 98 05/19/17 14:00 69 05/19/17 13:00 69 05/19/17 12:00 69 05/19/17 11:00 98.2 70 20 124/72 98 05/19/17 11:00 69 I/O 05/19/17 05/19/17 05/19/17 05/20/17 05/20/17 05/20/17 07:00 15:00 23:00 07:00 15:00 23:00 Intake Total 1320 ml 480 ml Output Total 1320 ml Balance 0 ml 480 ml Intake Oral 1320 ml 480 ml Output Urine Total 1320 ml # Voids 3 # Bowel Movements 2 2 Result Diagram: 05/19/17 0639 05/20/17 0536 Imaging Last Impressions Chest X-Ray 05/18/17 0949 Signed Impressions: Service Date/Time: Thursday, May 18, 2017 09:48 - CONCLUSION: No acute disease. Xiang Moser MD Procedures None Other Results Laboratory Tests Test 05/18/17 05/18/17 05/19/17 05/20/17 09:55 18:50 06:39 05:30 Digoxin Level 0.6 NG/ML Total Creatine Kinase 87 U/L Troponin I 0.05 NG/ML Thyroid Stimulating Hormone 1.340 uIU/ML 3rd Gen White Blood Count 8.0 TH/MM3 Red Blood Count 3.97 MIL/MM3 Hemoglobin 13.6 GM/DL Hematocrit 39.9 % Mean Corpuscular Volume 100.6 FL Mean Corpuscular Hemoglobin 34.3 PG Mean Corpuscular Hemoglobin 34.2 % Concent Red Cell Distribution Width 12.8 % Platelet Count 255 TH/MM3 Mean Platelet Volume 8.4 FL Neutrophils (%) (Auto) 67.4 % Lymphocytes (%) (Auto) 19.3 % Monocytes (%) (Auto) 11.3 % Eosinophils (%) (Auto) 1.1 % Basophils (%) (Auto) 0.9 % Neutrophils # (Auto) 5.4 TH/MM3 Lymphocytes # (Auto) 1.6 TH/MM3 Monocytes # (Auto) 0.9 TH/MM3 Eosinophils # (Auto) 0.1 TH/MM3 Basophils # (Auto) 0.1 TH/MM3 CBC Comment DIFF FINAL Differential Comment Prothrombin Time 21.7 SEC Prothromb Time International 1.9 RATIO Ratio Test 05/20/17 05:36 Sodium Level 141 MEQ/L Potassium Level 4.2 MEQ/L Chloride Level 106 MEQ/L Carbon Dioxide Level 26.5 MEQ/L Anion Gap 9 MEQ/L Blood Urea Nitrogen 13 MG/DL Creatinine 1.22 MG/DL Estimat Glomerular Filtration 58 ML/MIN Rate Random Glucose 98 MG/DL Calcium Level 8.7 MG/DL Phosphorus Level 2.9 MG/DL Magnesium Level 2.0 MG/DL Objective Remarks GENERAL: Well developed in no acute distress. SKIN: No rashes, ecchymoses or lesions. Warm and dry. HEAD: Atraumatic. Normocephalic. No temporal or scalp tenderness. EYES: Pupils equal round and reactive. Extraocular motions intact. No scleral icterus. No injection or drainage. ENT: Nose without bleeding or purulent drainage. Throat without erythema, tonsillar hypertrophy or exudate. Uvula midline. Airway patent. NECK: Trachea midline. No lymphadenopathy. Supple, nontender, no meningeal signs. CARDIOVASCULAR: Regular rate and rhythm. no murmurs. RESPIRATORY: Clear to auscultation. Breath sounds equal bilaterally. No wheezes , rales, or rhonchi. GASTROINTESTINAL: Abdomen soft, non-tender, nondistended. No hepato-splenomegaly , or palpable masses. No guarding. MUSCULOSKELETAL: Extremities without clubbing or cyanosis. Trace bilateral lower extremity edema. No joint tenderness, effusion, or edema noted. No calf tenderness. NEUROLOGICAL: Awake and alert. Able to move all extremities. No focal neurologic findings appreciated. Normal speech. Medications and IVs Current Medications Medications (Trade) Dose Ordered Sig/Paty Route Start Time Stop Time Status Last Admin (NS Flush) 2 ml UNSCH PRN IV FLUSH 05/18/17 11:30 (NS Flush) 2 ml BID IV FLUSH 05/18/17 21:00 05/20/17 09:35 (Tylenol) 650 mg Q4H PRN PO 05/18/17 11:30 05/19/17 14:35 (Zofran Inj) 4 mg Q6H PRN IVP 05/18/17 11:30 05/19/17 16:46 (Narcan Inj) 0.4 mg UNSCH PRN IV 05/18/17 11:30 (Gladis-Colace) 1 tab BID PO 05/18/17 21:00 05/19/17 08:38 (Milk Of Magnesia Liq) 30 ml Q12H PRN PO 05/18/17 11:30 (Senokot) 17.2 mg Q12H PRN PO 05/18/17 11:30 (Dulcolax Supp) 10 mg DAILY PRN RECTAL 05/18/17 11:30 (Lactulose Liq) 30 ml DAILY PRN PO 05/18/17 11:30 Atorvastatin Calcium 10 mg 10 mg HS PO 05/18/17 21:00 05/19/17 21:06 (Coumadin Consult Pharmacy) 0 ml @ 0 mls/hr UNSCH OTHER 05/18/17 13:00 (Ambien) 5 mg HS PRN PO 05/18/17 16:45 05/19/17 21:06 (Cordarone) 400 mg BID PO 05/18/17 21:00 05/20/17 22:00 05/20/17 09:33 (Mag-Ox) 400 mg BID PO 05/19/17 21:00 05/20/17 09:33 (Coumadin) 4 mg DAILY@1600 PO 05/19/17 16:00 05/19/17 15:57 (Lanoxin) 0.125 mg SuTuWeThSa PO 05/21/17 21:00 (Aldactone) 25 mg BID PO 05/20/17 21:00 (Toprol Xl) 50 mg HS PO 05/20/17 21:00 (Prinivil) 10 mg DAILY PO 05/21/17 09:00 (Cordarone) 400 mg DAILY PO 05/21/17 09:00 06/03/17 09:01 (Cordarone) 200 mg DAILY PO 06/04/17 09:00 A/P Assessment and Plan 76 yo male with a past medical history significant for atrial fibrillation on Coumadin, hypertension, CHF, GERD, PUD and asthma who presents to [facility] ED with complaints of lightheadedness, dizziness and irregular heart beats for the past month that have increased in intensity and frequency over the past 2 days with associated defibrillator firing earlier today. Ventricular tachycardia Defibrillator discharge Seen by therapeutic recreation specialist Doctor Filiberto Trevino, with Diagnosis of Complex Ventricular arrhythmias, received a defibrillator shock Chronic Atrial Fibrillation, now sinus rhythm, after ICD shock, Hypertension, PUD, COPD, chronic Warfarin therapy. Admitted and started on Amiodarone drip, he will change to by mouth amiodarone, the Defibrillator was reprogrammed his ICD to a DDD mode with lower rate limit of 70 pulses per minute a monitoring zone was also put on 130 beats per minute, keep potassium above 4.5 Magnesium level above 2. Seen in his bedroom, discussed with patient and his Nurse Miss Sorto his INR 1.8 subtherapeutic in a patient with CHADS-VASc Score of 4 will need to receive LMWH 1mg per kilogram every 12 hours SQ starting today. stable in his bedroom, no nausea, vomit or diarrhea, and sinus rhythm on monitor at this time. at this time seen by therapeutic recreation specialist and recommended for discharge and follow in his office, will continue with Amiodarone 800 mg daily for one week then 400 mg daily for two more weeks, follow in his office in one week. and continue low dose of Beta blockers today INR 1.9 Atrial fibrillation on Coumadin CHF, not in acute exacerbation Nonischemic cardiomyopathy HTN Continue on home dose of Coumadin. INR 1.9 discussed with Pharmacy due to CHADS -VASc score of 4 started on Lovenox bridging today recommended by Cardiology to discharge on increased dose of Warfarin and follow with PCP in two days to continue titration of the medication, PT and INR. Discontinue Digoxin, continue low dose of Beta Charmaine and continue Amiodarone 800 mg daily for one week and then 400 mg daily for two more weeks. Hold home Torsemide and Aldactone monitor I&Os last echocardiogram in the system dated 10/19/13 revealed severely reduced EF 25- 30%, diffuse hypokinesis. Patient states he recently had echocardiogram done on Saturday at his [employer] office. Asthma, not in acute exacerbation Duonebs as needed HLD Continue home Lipitor 10mg daily DVT prophylaxis Patient is on Coumadin Lovenox Discussed with patient and nurse Miss Correa, all questions answered to the best of my abilities. Code Status Full Code Discharge Planning Discharge home today. Je Chacon MD May 20, 2017 10:49
[2017-05-20] MEDS ORDERED: COUM4TAB PO (11:12)
[2017-05-20] MEDS ORDERED: AMIO200T PO ×2 (11:12)
[2017-05-20] MEDS ORDERED: METO50TA11 PO (11:13)
--- NOTE | 2017-05-20 11:16 | HHI.DS ---
Discharge Summary Admission Date May 19, 2017 at 14:23 Discharge Date: May 20, 2017 Admitting Diagnosis wide complex V tach, defib firing (1) Ventricular tachycardia ICD Code: I47.2 (2) Defibrillator discharge ICD Code: Z45.02 Procedures None Brief History - From Admission This is a 76 yo male with a past medical history significant for atrial fibrillation on Coumadin, nonischemic cardiomyopathy, hypertension, CHF, GERD, PUD and asthma who presents to [facility] ED with complaints of lightheadedness, dizziness and irregular heart beats for the past month that have increased in intensity and frequency over the past 2 days with associated defibrillator firing earlier today. He denies any syncopal episodes. Patient denies any associated chest pain or shortness of breath. He denies any increased swelling in his legs or feet. He cannot endorse any aggravating or alleviating factors. He denies any recent illness, fever or chills. He denies any associated nausea, vomiting or abdominal pain. He denies any hematuria, dysuria, diarrhea or constipation. He does admit to drinking alot of alcohol last night and eating chicken wings. Initially in the ED, his EKG showed sinus rhythm with frequent PVCs. Cardiology was contacted and per their recommendations was started on Metoprolol 50mg BID. [employer] was contacted to interrogate the patients defibrillator device. Patient worsened with frequent spells of wide complex ventricular tachycardia from 10 to 40 beats which spontaneously terminated. Per ED's note, his defibrillator did not fire during any of these events. ED discussed with trout farmer again and amiodarone drip per protocol was initiated. Patient had some complaints of left shoulder pain that improved after the HOB was repositioned. Per patient report, he was seen at his trout [facility] office Dr. Zambrano 3 days ago and underwent an echocardiogram. CBC/BMP: 05/19/17 0639 05/20/17 0536 Significant Findings Laboratory Tests Test 05/18/17 05/19/17 05/20/17 05/20/17 09:55 06:39 05:30 05:36 Red Blood Count 4.42 MIL/MM3 3.97 MIL/MM3 (4.50-5.90) (4.50-5.90) Mean Corpuscular Hemoglobin 35.1 PG 34.3 PG (27.0-34.0) (27.0-34.0) Monocytes (%) (Auto) 10.8 % 11.3 % (0.0-8.0) (0.0-8.0) Monocytes # (Auto) 1.0 TH/MM3 (0-0.9) Prothrombin Time 26.8 SEC 21.0 SEC 21.7 SEC (9.8-11.6) (9.8-11.6) (9.8-11.6) Estimat Glomerular Filtration 58 ML/MIN (>89) 60 ML/MIN (>89) 58 ML/MIN (>89) Rate Digoxin Level 0.6 NG/ML (0.8-2.0) Mean Corpuscular Volume 100.6 FL (80.0-100.0) Chloride Level 108 MEQ/L (98-107) Calcium Level 8.4 MG/DL (8.5-10.1) Imaging Last Impressions Chest X-Ray 05/18/17 [id number] Signed Impressions: Service Date/Time: Thursday, May 18, 2017 09:48 - CONCLUSION: No acute disease. Xiang Moser MD PE at Discharge GENERAL: Well developed in no acute distress. SKIN: No rashes, ecchymoses or lesions. Warm and dry. HEAD: Atraumatic. Normocephalic. No temporal or scalp tenderness. EYES: Pupils equal round and reactive. Extraocular motions intact. No scleral icterus. No injection or drainage. ENT: Nose without bleeding or purulent drainage. Throat without erythema, tonsillar hypertrophy or exudate. Uvula midline. Airway patent. NECK: Trachea midline. No lymphadenopathy. Supple, nontender, no meningeal signs. CARDIOVASCULAR: Regular rate and rhythm. no murmurs. RESPIRATORY: Clear to auscultation. Breath sounds equal bilaterally. No wheezes , rales, or rhonchi. GASTROINTESTINAL: Abdomen soft, non-tender, nondistended. No hepato-splenomegaly , or palpable masses. No guarding. MUSCULOSKELETAL: Extremities without clubbing or cyanosis. Trace bilateral lower extremity edema. No joint tenderness, effusion, or edema noted. No calf tenderness. NEUROLOGICAL: Awake and alert. Able to move all extremities. No focal neurologic findings appreciated. Normal speech. Hospital Course This is a pleasant 76 y/o male who came to ER after Defibrillator firing in am yesterday. Seen by flight security specialist Doctor Filiberto Trevino, with Diagnosis of Complex Ventricular arrhythmias, received a defibrillator shock Chronic Atrial Fibrillation, now sinus rhythm, after ICD shock, Hypertension, PUD, COPD, chronic Warfarin therapy. Admitted and started on Amiodarone drip, he will change to by mouth amiodarone, the Defibrillator was reprogrammed his ICD to a DDD mode with lower rate limit of 70 pulses per minute a monitoring zone was also put on 130 beats per minute, keep potassium above 4.5 Magnesium level above 2. Seen in his bedroom, discussed with patient and his Nurse Miss Sorto his INR 1.8 subtherapeutic in a patient with CHADS-VASc Score of 4 will need to receive LMWH 1mg per kilogram every 12 hours SQ starting today. stable in his bedroom, no nausea, vomit or diarrhea, and sinus rhythm on monitor at this time. 05/20: Stable in his bedroom, discussed with patient and nurse Miss [place], as per flight security specialist to continue Warfarin today with INR 1.9 and Sinus rhythm, okay to increase the dose of Warfarin and follow up tomorrow for PT and INR Discontinued Digoxin and given low dose Beta blockers with Amiodarone 800 mg for one more week then 400 mg day for two more weeks. and follow during the week with flight security specialist. no nausea, vomit or diarrhea. no chest pain, and continue sinus rhythm. Assessment and Plan 76 yo male with a past medical history significant for atrial fibrillation on Coumadin, hypertension, CHF, GERD, PUD and asthma who presents to [facility] ED with complaints of lightheadedness, dizziness and irregular heart beats for the past month that have increased in intensity and frequency over the past 2 days with associated defibrillator firing earlier today. Ventricular tachycardia Defibrillator discharge Seen by flight security specialist Doctor Filiberto Trevino, with Diagnosis of Complex Ventricular arrhythmias, received a defibrillator shock Chronic Atrial Fibrillation, now sinus rhythm, after ICD shock, Hypertension, PUD, COPD, chronic Warfarin therapy. Admitted and started on Amiodarone drip, he will change to by mouth amiodarone, the Defibrillator was reprogrammed his ICD to a DDD mode with lower rate limit of 70 pulses per minute a monitoring zone was also put on 130 beats per minute, keep potassium above 4.5 Magnesium level above 2. Seen in his bedroom, discussed with patient and his Nurse Miss Sorto his INR 1.8 subtherapeutic in a patient with CHADS-VASc Score of 4 will need to receive LMWH 1mg per kilogram every 12 hours SQ starting today. stable in his bedroom, no nausea, vomit or diarrhea, and sinus rhythm on monitor at this time. at this time seen by flight security specialist and recommended for discharge and follow in his office, will continue with Amiodarone 800 mg daily for one week then 400 mg daily for two more weeks, follow in his office in one week. and continue low dose of Beta blockers today INR 1.9 Atrial fibrillation on Coumadin CHF, not in acute exacerbation Nonischemic cardiomyopathy HTN Continue on home dose of Coumadin. INR 1.9 discussed with Pharmacy due to CHADS -VASc score of 4 started on Lovenox bridging today recommended by Cardiology to discharge on increased dose of Warfarin and follow with PCP in two days to continue titration of the medication, PT and INR. Discontinue Digoxin, continue low dose of Beta Charmaine and continue Amiodarone 800 mg daily for one week and then 400 mg daily for two more weeks. Hold home Torsemide and Aldactone monitor I&Os last echocardiogram in the system dated 10/19/13 revealed severely reduced EF 25- 30%, diffuse hypokinesis. Patient states he recently had echocardiogram done on Saturday at his [employer] office. Asthma, not in acute exacerbation Duonebs as needed HLD Continue home Lipitor 10mg daily DVT prophylaxis Patient is on Coumadin Lovenox Discussed with patient and nurse Miss Correa, all questions answered to the best of my abilities. Code Status Full Code Discharge Planning Discharge home today. Pt Condition on Discharge: Good Discharge Disposition: Discharge Home Discharge Time: <= 30 minutes Discharge Instructions DIET: Follow Instructions for: Heart Healthy Diet Activities you can perform: Regular-No Restrictions Je Chacon MD May 20, 2017 11:16
--- NOTE | 2017-05-20 16:05 | EKG ---
Date Performed: 05/19/2017 Time Performed: 16:07:42 PTAGE: 76 years EKG: Atrial pacing Possible anterior infarct - age undetermined Inferior/lateral T wave changes are nonspecific Abnormal ECG PREVIOUS TRACING 05/18/2017 11.26.36 Compared to previous tracing, patient now shows atrial pa cing and occasional anvik beats. DOCTOR: Elias Can Interpretating Date/Time 05/20/2017 16:04:38
[2017-05-20] MEDS ORDERED: SPIRONOLACTONE 25 MG TAB PO SCH (21:00)
[2017-05-20] MEDS ORDERED: METOPROLOL SUCCINATE 50 MG EXTENDED RELEASE TAB PO SCH (21:00)
[2017-05-21] MEDS ORDERED: AMIODARONE 200 MG TAB PO SCH (09:00)
[2017-05-21] MEDS ORDERED: LISINOPRIL 10 MG TAB PO SCH (09:00)
[2017-05-21] MEDS ORDERED: DIGOXIN 0.125 MG TAB PO SCH (21:00)
[2017-06-04] MEDS ORDERED: AMIODARONE 200 MG TAB PO SCH (09:00)
== END 2017-05-20 11:47 | disposition home or self-care (01) | DRG 309 ==
LOC: NEPE 09:27 → INTOOBSV 11:17 → NEDA 11:17 → HCIS 16:00 → OBSVTOIN 05-19 14:23
PROVIDERS: ADMIT Internal Medicine; ATTEND Internal Medicine
PROC: 4B02XTZ Measurement of Cardiac Defibrillator, External Approach (ICD-10-PCS; principal; 2017-05-19)
DX: I47.2 Ventricular tachycardia (principal); I42.9 Cardiomyopathy, unspecified; I11.0 Hypertensive heart disease with heart failure; I50.9 Heart failure, unspecified; I42.0 Dilated cardiomyopathy; I25.10 Atherosclerotic heart disease of native coronary artery without angina pectoris; K21.9 Gastro-esophageal reflux disease without esophagitis; E78.5 Hyperlipidemia, unspecified; I48.2 Chronic atrial fibrillation; I49.3 Ventricular premature depolarization; J45.909 Unspecified asthma, uncomplicated; J44.9 Chronic obstructive pulmonary disease, unspecified; Z45.02 Encounter for adjustment and management of automatic implantable cardiac defibrillator; Z79.01 Long term (current) use of anticoagulants; Z87.891 Personal history of nicotine dependence
CPT/HCPCS: 71010; 80048; 80162; 82550; 83735; 84100; 84443; 84484; 85025; 85610; 93005; J0282; J1650; J2405; J7030; J7060

== ENCOUNTER 2017-12-28 12:30 | Emergency (ER) | payer OTHER ==
[~2017-12-28] VITALS: Ht 165.1 cm; Wt 87.0 kg
[~2017-12-28 12:30] MED LIST changes: +AMIO200T PO; +ATOR10TA15 PO; -COUM3TAB PO; +COUM4TAB PO; -CYCL-36 PO; -FIORIC PO; +FOSI10TA PO; -FOSI20TA PO; -FURO20 PO; +MAGN400T2 PO; +METO1TAB9 PO; -METO25TA6 PO; -OMEP20TA PO; -PRED10 PO
[2017-12-28 12:37] VITALS: TEMP 98.1
[2017-12-28 12:42] VITALS: BP 135/79; PULSE 69; RESP 18; O2SAT 97
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
[2017-12-28 13:21] LABS: AUTOMATED NEUTROPHIL # 7.2 TH/MM3 (1.8-7.7); BASOPHIL # 0.1 TH/MM3 (0-0.2); BASOPHIL % 0.8 % (0.0-2.0); EOSINOPHIL # 0.1 TH/MM3 (0-0.4); EOSINOPHIL % 0.6 % (0.0-4.0); HEMATOCRIT 39.2 % (39.0-51.0); HEMOGLOBIN 14.6 GM/DL (13.0-17.0); LYMPHOCYTE # 1.9 TH/MM3 (1.0-4.8); MEAN CELL VOLUME 100.5 FL (80.0-100.0); MEAN CORPUSCULAR HEMOGLOBIN 37.5 PG (27.0-34.0); MEAN PLATELET VOLUME 8.1 FL (7.0-11.0); MONOCYTE # 1.4 TH/MM3 (0-0.9); NEUT % 67.6 % (16.0-70.0); PLATELET COUNT 290 TH/MM3 (150-450); RED CELL DISTRIBUTION WIDTH 13.5 % (11.6-17.2); WHITE BLOOD COUNT 10.6 TH/MM3 (4.0-11.0)
[2017-12-28 13:26] LABS: MEAN CORPUSCULAR HGB CONC 37.3 % (32.0-36.0)
[2017-12-28 13:58] LABS: BICARBONATE 25.3 MEQ/L (21.0-32.0); CALCIUM 8.4 MG/DL (8.5-10.1); CREATININE 1.57 MG/DL (0.60-1.30)
[2017-12-28] MEDS ORDERED: ONDANSETRON HCL 4 MG/2 ML VIAL IV PUSH ONE (14:00)
[2017-12-28] MEDS ORDERED: MORPHINE SULFATE 4 MG/ML INJ IV PUSH ONE (14:00)
[2017-12-28 14:19] VITALS: RESP 16
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
[2017-12-28] MEDS ORDERED: HYDR-3576 PO (16:27)
== END 2017-12-28 16:51 | disposition home or self-care (01) ==
LOC: NEPE 12:30
DX: S09.90XA Unspecified injury of head, initial encounter (principal); S00.83XA Contusion of other part of head, initial encounter; S16.1XXA Strain of muscle, fascia and tendon at neck level, initial encounter; S29.012A Strain of muscle and tendon of back wall of thorax, initial encounter; S39.012A Strain of muscle, fascia and tendon of lower back, initial encounter; S20.212A Contusion of left front wall of thorax, initial encounter; S22.41XA Multiple fractures of ribs, right side, initial encounter for closed fracture; V43.52XA Car driver injured in collision with other type car in traffic accident, initial encounter; W22.8XXA Striking against or struck by other objects, initial encounter; I11.0 Hypertensive heart disease with heart failure; I50.9 Heart failure, unspecified; I25.10 Atherosclerotic heart disease of native coronary artery without angina pectoris; J45.909 Unspecified asthma, uncomplicated; Z95.810 Presence of automatic (implantable) cardiac defibrillator; Z88.8 Allergy status to other drugs, medicaments and biological substances; Z79.01 Long term (current) use of anticoagulants; Z79.899 Other long term (current) drug therapy
CPT/HCPCS: 70450; 70486; 71250; 72125; 72128; 72131; 80048; 85025; 94150; 96374; 96375; 99284; J2270; J2405

== ENCOUNTER 2018-02-03 11:49 | Emergency (ER) | payer MEDICARE, OTHER ==
[~2018-02-03] VITALS: Ht 165.1 cm; Wt 87.5 kg
[~2018-02-03 11:49] MED LIST changes: +HYDR-3576 PO
[2018-02-03 11:53] VITALS: BP 132/74; PULSE 70; RESP 16; TEMP 98.9; O2SAT 96
--- NOTE | 2018-02-03 12:41 | PD ---
HPI Chief Complaint: Edema Time Seen by Provider: 12:29 Travel History International Travel<30 days: No Contact w/Intl Traveler<30days: No Traveled to known affect area: No History of Present Illness HPI This patient went to an urgent care center because he had pain in his right leg. He was sent here to rule out DVT. He has no history of DVT. He does take Eliquis for A. fib. He has had 3 days of pain behind his right knee and also has some pain at the lateral border of his right foot. No injury. Symptom severity is mild. No alleviating factors. He does have some mild symmetric swelling in both lower legs. He is on diuretics. No alleviating factors. No exacerbating factors. PFSH Past Medical History Hx Anticoagulant Therapy: Yes (ELIQUIS) Heart Rhythm Problems: Yes Cancer: No Cardiovascular Problems: Yes (PACER AND DEFIB CATH) High Cholesterol: No Chemotherapy: No Chest Pain: Yes Congestive Heart Failure: Yes Cerebrovascular Accident: No Coronary Artery Disease: Yes (PACER/DEFIB) Diabetes: No Diminished Hearing: No Endocrine: No Gastrointestinal Disorders: Yes GERD: Yes Glaucoma: No Genitourinary: No Hepatitis: No Hiatal Hernia: No Hypertension: Yes Implanted Vascular Access Dvce: Yes Musculoskeletal: Yes Neurologic: No Psychiatric: No Reproductive: No Respiratory: Yes (ASTHMA) Integumentary: No Radiation Therapy: No Seizures: No Thyroid Disease: No Ulcer: Yes Past Surgical History Abdominal Surgery: No AICD: Yes Cardiac Surgery: Yes (PACE/DEFIB) Eye Surgery: Yes (BILAT CATARACT) Genitourinary Surgery: No Prostatectomy: Yes ("SCRAPED IT") Thoracic Surgery: No Other Surgery: Yes (SINUS) Social History Alcohol Use: Yes (OCC) Tobacco Use: No Substance Use: No Allergies-Medications (Allergen,Severity, Reaction): Coded Allergies: nitrofurantoin (Unverified Allergy, Intermediate, Itching, 02/03/18) Uncoded Allergies: ANTIBIOTIC (Adverse Reaction, Intermediate, Rash, 05/18/17) PT STATE HE HAS A REACTION TO AN ANTIBIOTIC BUT CANNOT REMEMBER THE NAME Reported Meds & Prescriptions Reported Meds & Active Scripts Active Reported Finasteride 5 Mg Tab 5 Mg PO DAILY Do not crush. Omeprazole 20 Mg Tab 20 Mg PO DAILY Torsemide 5 Mg Tab Unknown Dose PO DAILY Eliquis (Apixaban) 2.5 Mg Tab 2.5 Mg PO BID Spironolactone 25 Mg Tab 25 Mg PO DAILY Atorvastatin (Atorvastatin Calcium) 10 Mg Tab 10 Mg PO HS Magnesium Oxide 400 Mg Tab 400 Mg PO DAILY Fosinopril (Fosinopril Sodium) 10 Mg Tab 10 Mg PO DAILY Review of Systems General / Constitutional: No: Fever Eyes: No: Visual changes HENT: No: Headaches Cardiovascular: Positive: Edema, No: Chest Pain or Discomfort Respiratory: No: Shortness of Breath Gastrointestinal: No: Abdominal Pain Genitourinary: No: Dysuria Musculoskeletal: Positive: Edema, Pain Skin: No Rash Neurologic: No: Weakness Psychiatric: No: Depression Endocrine: No: Polydipsia Hematologic/Lymphatic: No: Easy Bruising Physical Exam Narrative GENERAL: Well-nourished, well-developed patient in no apparent distress. SKIN: Focused skin assessment reveals no rash and nodules. Skin is Warm and dry. HEAD: Atraumatic. Normocephalic. EYES: Pupils equal and round. No scleral icterus. No injection or drainage. ENT: No nasal bleeding or discharge. Mucous membranes pink and moist. NECK: Trachea midline. No JVD. CARDIOVASCULAR: Regular rate and rhythm. No murmur appreciated. RESPIRATORY: No accessory muscle use. Clear to auscultation. Breath sounds equal bilaterally. GASTROINTESTINAL: Abdomen soft, non-tender, nondistended. Hepatic and splenic margins not palpable. MUSCULOSKELETAL: No obvious deformities. No clubbing. No cyanosis. Trace symmetric edema in the ankles and lower legs and feet. No objective abnormalities of the foot or leg exam beyond trace edema. NEUROLOGICAL: Awake and alert. No obvious cranial nerve deficits. Motor grossly within normal limits. Normal speech. PSYCHIATRIC: Appropriate mood and affect; insight and judgment normal. Data Data Last Documented VS Vital Signs Date Time Temp Pulse Resp B/P (MAP) Pulse Ox O2 Delivery O2 Flow Rate FiO2 02/03/18 11:53 98.9 70 16 132/74 (93) 96 Orders Orders Us Leg Venous Doppler (02/03/18 ) Foot, Limited (2vws) (02/03/18 ) [facility] Medical Decision Making Medical Screen Exam Complete: Yes Emergency Medical Condition: Yes Medical Record Reviewed: Yes Differential Diagnosis DVT, muscle strain, stress fracture Narrative Course I have reviewed the patient's electronic medical record. I reviewed the urgent care dictation. They mentioned they were concerned about PAD. However he has readily palpable pulses in both feet and no evidence of ischemic changes on exam. They wanted to rule out DVT My clinical suspicion is low. Plus he is already on the treatment. However I have ordered a right leg ultrasound and a right foot x-ray Ultrasound is negative for DVT. I reviewed the right foot x-rays and I do not see an acute fracture He has 2 separate nonspecific musculoskeletal type pains. No indication of emergency condition Diagnosis Primary Impression: Pain of right leg Additional Impression: Right foot pain Additional Instructions: The patient was advised to follow up with their physician and return if they worsen. Med/Other Pt SpecificInfo: Other Disposition: 01 DISCHARGE HOME Condition: Stable Cecil Lira MD Feb 03, 2018 12:41
[2018-02-03] MEDS ORDERED: OMEP20TA93 PO (12:42)
[2018-02-03] MEDS ORDERED: TORS5TAB2 PO (12:42)
[2018-02-03] MEDS ORDERED: APIX2.5T PO (12:42)
[2018-02-03] MEDS ORDERED: FINA5TAB2 PO (12:42)
--- NOTE | 2018-02-03 14:06 | RADRPT ---
EXAM DATE/TIME: 02/03/2018 13:39 [facility] COMPARISON: No previous studies available for comparison. INDICATIONS : Right leg swelling and pain. MEDICAL HISTORY : Hypertension. Gastroesophageal reflux disease. Congestive heart failure. Coronary artery disease. Anticoagulant therapy, Eliquis. Ulcer. SURGICAL HISTORY : Pacemaker. Cardiac catheterization. Sinus surgery. Prostate surgery. ENCOUNTER: Initial ACUITY: 1 day PAIN SCORE: 4/10 LOCATION: Right leg. TECHNIQUE: Venous ultrasound of the leg was performed from the inguinal ligament to the proximal calf. Real-charo e, color Doppler and spectral tracing, compression and augmentation techniques were used. FINDINGS: There is normal compressibility of the deep venous system from the inguinal region to the proximal ca lf. No echogenic clot is seen in the lumen of the common femoral, femoral, popliteal, and posterior tibial veins. There is a normal response of the venous system to proximal and distal augmentation an d respiration. CONCLUSION: No DVT is identified within the right lower extremity. Romulo Murry MD on February 03, 2018 at 14:03 Board Certified Radiologist. This report was verified electronically.
--- NOTE | 2018-02-03 14:24 | RADRPT ---
EXAM DATE/TIME: 02/03/2018 13:23 [facility] COMPARISON: No previous studies available for comparison. INDICATIONS : Pain in arch of right foot, no known injury. MEDICAL HISTORY : Cardiovascular disease. Congestive heart failure. Hypertension SURGICAL HISTORY : Pacemaker. ENCOUNTER: Initial ACUITY: 1 day PAIN SCORE: 7/10 LOCATION: Right arch of foot FINDINGS: Two view examination of the right foot demonstrates soft tissue swelling in the plantar midfoot. The osseous structures appear intact. No radiopaque foreign bodies. Bony mineralization is normal. CONCLUSION: 1. Mild soft tissue swelling in the plantar midfoot without radiopaque foreign bodies or underlying o sseous abnormality. Larry Casas MD on February 03, 2018 at 14:21 Board Certified Radiologist. This report was verified electronically.
[2018-02-03 14:44] VITALS: BP 132/73; PULSE 72; RESP 16; O2SAT 96
== END 2018-02-03 14:58 | disposition home or self-care (01) ==
LOC: PHED 11:49
DX: M79.604 Pain in right leg (principal); M79.671 Pain in right foot; I48.91 Unspecified atrial fibrillation; I11.0 Hypertensive heart disease with heart failure; I50.9 Heart failure, unspecified; I25.10 Atherosclerotic heart disease of native coronary artery without angina pectoris; J45.909 Unspecified asthma, uncomplicated; K21.9 Gastro-esophageal reflux disease without esophagitis
CPT/HCPCS: 73620; 93971

== ENCOUNTER 2018-03-15 15:09 | Emergency (ER) | payer OTHER ==
[~2018-03-15] VITALS: Ht 165.1 cm; Wt 96.0 kg
[~2018-03-15 15:09] MED LIST changes: -AMIO200T PO; +APIX2.5T PO; -COUM4TAB PO; +FINA5TAB2 PO; -HYDR-3576 PO; -METO1TAB9 PO; +OMEP20TA93 PO; +TORS5TAB2 PO
[2018-03-15 15:14] VITALS: BP 147/81; PULSE 98; RESP 16; TEMP 97.8; O2SAT 98
--- NOTE | 2018-03-15 15:42 | PD ---
HPI Chief Complaint: Fall Time Seen by Provider: 15:24 Travel History International Travel<30 days: No Contact w/Intl Traveler<30days: No Traveled to known affect area: No History of Present Illness HPI 77-year-old male presents to the emergency department for evaluation swelling and bruising to his right lateral distal thigh after tripping over the shower ledge this morning and falling. He takes Eliquis and is concerned of the swelling and bruising. Says he hit his leg on the sink during the fall. He denies hitting his head or loss of consciousness. Denies neck pain or back pain. Denies headache, lightheadedness, dizziness, change in mentation, confusion, disorientation, slurred speech, focal deficits or weakness. His daughter is here at the bedside also and she reports he has had normal activity throughout the day and there has been no change in mentation. She said he came up this morning, ate breakfast, went to the [employer], and then when he went home he called her with concern of the hematoma on his leg only. Denies paresthesias, loss of sensation, decreased range of motion, decreased strength to the affected extremity. Has been ambulatory on the affected extremity. Denies chest pain, shortness of breath, abdominal pain. Rates pain 2/10. Worse with touch to the area. Better without touching the area. Primary care provider is Dr. Bell. Allergies to nitrofurantoin. History of atrial fibrillation and hypertension. Has defibrillator and pacemaker. Has no other medical complaints. No other modifying factors or associated signs and symptoms. PFSH Past Medical History Hx Anticoagulant Therapy: Yes Heart Rhythm Problems: Yes Cancer: No Cardiovascular Problems: Yes High Cholesterol: No Chemotherapy: No Chest Pain: Yes Congestive Heart Failure: Yes Cerebrovascular Accident: No Coronary Artery Disease: Yes (PACER/DEFIB) Diabetes: No Diminished Hearing: No Endocrine: No Gastrointestinal Disorders: Yes GERD: Yes Glaucoma: No Genitourinary: No Hepatitis: No Hiatal Hernia: No Hypertension: Yes Implanted Vascular Access Dvce: Yes Musculoskeletal: Yes Neurologic: No Psychiatric: No Reproductive: No Respiratory: Yes (ASTHMA) Integumentary: No Radiation Therapy: No Seizures: No Thyroid Disease: No Ulcer: Yes Past Surgical History Abdominal Surgery: No AICD: Yes Cardiac Surgery: Yes (PACE/DEFIB) Eye Surgery: Yes (BILAT CATARACT) Genitourinary Surgery: No Prostatectomy: Yes ("SCRAPED IT") Thoracic Surgery: No Other Surgery: Yes (SINUS) Social History Alcohol Use: Yes (OCC) Tobacco Use: No Substance Use: No Allergies-Medications (Allergen,Severity, Reaction): Coded Allergies: nitrofurantoin (Unverified Allergy, Intermediate, Itching, 03/15/18) Uncoded Allergies: ANTIBIOTIC (Adverse Reaction, Intermediate, Rash, 05/18/17) PT STATE HE HAS A REACTION TO AN ANTIBIOTIC BUT CANNOT REMEMBER THE NAME Reported Meds & Prescriptions Reported Meds & Active Scripts Active Reported Finasteride 5 Mg Tab 5 Mg PO DAILY Do not crush. Omeprazole 20 Mg Tab 20 Mg PO DAILY Torsemide 5 Mg Tab Unknown Dose PO DAILY Eliquis (Apixaban) 2.5 Mg Tab 2.5 Mg PO BID Spironolactone 25 Mg Tab 25 Mg PO DAILY Atorvastatin (Atorvastatin Calcium) 10 Mg Tab 10 Mg PO HS Magnesium Oxide 400 Mg Tab 400 Mg PO DAILY Fosinopril (Fosinopril Sodium) 10 Mg Tab 10 Mg PO DAILY Review of Systems Except as stated in HPI: all other systems reviewed are Neg Physical Exam Narrative GENERAL: Well-nourished, well-developed patient, in no acute distress SKIN: Warm and dry. Approximately 6 cm x 4 cm hematoma noted to the distal, lateral, right thigh with an area of surrounding ecchymosis. The hematoma and the area of ecchymosis was marked with a surgical marker. HEAD: Atraumatic. Normocephalic. No facial or scalp abrasions or lacerations noted. EYES: Pupils equal and round at 3 mm with brisk reaction. No scleral icterus. No injection or drainage. No raccoon eyes. ENT: Mucosa pink and moist. Airway patent. Nares without nasal blood, purulent drainage. No rhinorrhea. EARS: Bilateral pinnae and external canals appear within normal limits. Bilateral tympanic membranes without erythema, dullness, hemotympanum or perforation. No otorrhea. No jade signs. NECK: Moving freely. Trachea midline. No lymphadenopathy. Active rotation of the neck greater than 45 left and right. No midline point tenderness on palpation of the cervical spine. No obvious deformities. CHEST: No retractions or use of accessory muscles. CARDIOVASCULAR: Regular rate and rhythm. No murmur appreciated. RESPIRATORY: No accessory muscle use. Clear to auscultation. Breath sounds equal bilaterally. GASTROINTESTINAL: Abdomen soft, non-tender, nondistended. Hepatic and splenic margins not palpable. Bowel sounds are active 4 quadrants. MUSCULOSKELETAL: Right lower extremity is supple nontender with 2+ pedal pulse and sensory intact; full range of motion and strength. No obvious deformities. No clubbing. No cyanosis. No edema. BACK: No midline point tenderness on palpation of the lumbar or thoracic spine. No obvious deformities. Patient sitting up in bed at 90. Ambulatory with a normal gait. NEUROLOGICAL: Awake and alert. Oriented 3. No obvious cranial nerve deficits. Motor grossly within normal limits. Normal speech. No midline drift. No ataxia. Moves all extremities. 5/5 strength to all extremities. Sensory intact. PSYCHIATRIC: Appropriate mood and affect; insight and judgment normal. Data Data Last Documented VS Vital Signs Date Time Temp Pulse Resp B/P (MAP) Pulse Ox O2 Delivery O2 Flow Rate FiO2 03/15/18 15:14 97.8 98 16 147/81 (103) 98 Orders Orders Ed Discharge Order (03/15/18 15:42) MDM Medical Decision Making Medical Screen Exam Complete: Yes Emergency Medical Condition: Yes Medical Record Reviewed: Yes Differential Diagnosis Hematoma, contusion, medical clearance Narrative Course 77-year-old male went to his right lateral distal thigh from hitting it on a sink during a mechanical fall this morning approximately 8 AM. He is on Eliquis. He denies hitting his head or loss of consciousness. Denies neck pain or back pain. No focal deficits or weakness. The area of the hematoma and bruising was marked with a surgical marker to comfort the patient and the patient's daughter so they can evaluate the area. Instructed patient to follow up with primary care provider. Patient verbalizes understanding and agreement with treatment plan. Patient is medically cleared and stable for discharge. Discussed reasons to return to the emergency department. Patient agrees with treatment plan. The patients vital signs are stable and the patient is stable for outpatient follow-up and treatment. Patient discharged home, stable and in no acute distress. Diagnosis Primary Impression: Hematoma of right thigh Qualified Codes: S70.11XA - Contusion of right thigh, initial encounter Referrals: Primary Care Physician Patient Instructions: Fall Prevention (ED), General Instructions, Hematoma (ED) Additional Instructions: Tylenol as directed and as needed for pain Heating pad and/or ice to affected area to reduce pain/inflammation Avoid aggravating activities; increase activity as tolerated Follow-up with primary care provider Return to emergency department immediately with worsening of symptoms Med/Other Pt SpecificInfo: No Change to Meds, No Meds Exist/No RX given Disposition: 01 DISCHARGE HOME Condition: Stable Alexa Rivera Mar 15, 2018 15:42
== END 2018-03-15 15:47 | disposition home or self-care (01) ==
LOC: PHEFT 15:09
DX: S70.11XA Contusion of right thigh, initial encounter (principal); W01.0XXA Fall on same level from slipping, tripping and stumbling without subsequent striking against object, initial encounter; I48.91 Unspecified atrial fibrillation; I11.0 Hypertensive heart disease with heart failure; I50.9 Heart failure, unspecified; I25.10 Atherosclerotic heart disease of native coronary artery without angina pectoris; K21.9 Gastro-esophageal reflux disease without esophagitis; J45.909 Unspecified asthma, uncomplicated; Z79.01 Long term (current) use of anticoagulants; Z95.810 Presence of automatic (implantable) cardiac defibrillator
CPT/HCPCS: 99282